=== PATIENT | female | born 1990 | race African-American/Black ===

== ENCOUNTER 2017-08-12 21:57 | Emergency (ER) | payer OTHER ==
[2017-08-12 21:58] VITALS: BP 130/74; PULSE 104; RESP 16; TEMP 97.9; O2SAT 100
[2017-08-12] MEDS ORDERED: CYCLOBENZAPRINE HCL 10 MG TAB PO ONE (23:45)
[2017-08-12] MEDS ORDERED: NAPROXEN 500 MG TAB PO ONE (23:45)
[2017-08-12] MEDS ORDERED: DICL75TA PO (23:50)
[2017-08-12] MEDS ORDERED: CYCL10TA PO (23:50)
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
== END 2017-08-13 00:32 | disposition home or self-care (01) ==
LOC: NEPK 21:57
DX: S16.1XXA Strain of muscle, fascia and tendon at neck level, initial encounter (principal); S39.012A Strain of muscle, fascia and tendon of lower back, initial encounter; V43.52XA Car driver injured in collision with other type car in traffic accident, initial encounter; Z79.899 Other long term (current) drug therapy
CPT/HCPCS: 72040; 72100; 99284